=== PATIENT | male | born 1975 | race Two or more races ===

== ENCOUNTER 2019-09-03 10:49 | Inpatient (IN) | payer OTHER ==
--- NOTE | 2019-09-03 10:59 | BHS.RME ---
Substance Use & Tx History - Substance Use History Alcohol Substance amount: 2 SIX PACK Frequency of use: Daily Substance route: Oral Date of Last Use: 09/02/19 Marijuana/Hashish Substance amount: $50 Frequency of use: Daily Substance route: Smoking Date of Last Use: 09/02/19 Cocaine-Crack Substance amount: $300 Frequency of use: Daily Substance route: Smoking Date of Last Use: 08/31/19 Nicotine Substance amount: 1 CIGG Frequency of use: Daily Substance route: Smoking Date of Last Use: 09/03/19 Physical/Psych/Mental Status - Behavior General Behavior: Increased activity (restlessness, agitation) Eye Contact: Normal - Cooperativeness Cooperativeness: Cooperative - Thinking Thought Processes: Tight, Logical, Goal Directed - Physical Health Problems Is patient presently having any pain?: No Does patient presently have any injuries (include location): No Does patient currently have a fever: No Is patient : No CIWA Nausea/Vomitin-No Nausea/No Vomiting Muscle Tremors: 3 Anxiety: 3 Agitation: 3 Paroxysmal Sweats: No Perspiration Orientation: 0-Oriented Tacttile Disturbances: 0-None Auditory Disturbances: 0-None Visual Disturbances: 0-None Headache: 2-Mild CIWA-Ar Total Score: 11
--- NOTE | 2019-09-03 12:19 | HP ---
CIWA Score Nausea/Vomitin-No Nausea/No Vomiting Muscle Tremors: 3 Anxiety: 3 Agitation: 3 Paroxysmal Sweats: No Perspiration Orientation: 0-Oriented Tacttile Disturbances: 0-None Auditory Disturbances: 0-None Visual Disturbances: 0-None Headache: 2-Mild CIWA-Ar Total Score: 11 - Admission Criteria OASAS Guidelines: Admission for Medically Managed Detox: Requires at least one of the followin. CIWA greater than 12 2. Seizures within the past 24 hours 3. Delirium tremens within the past 24 hours 4. Hallucinations within the past 24 hours 5. Acute intervention needed for co occurring medical disorder 6. Acute intervention needed for co occurring psychiatric disorder 7. Severe withdrawal that cannot be handled at a lower level of care (continued vomiting, continued diarrhea, abnormal vital signs) requiring intravenous medication and/or fluids 8. Admitting History and Physical - Admission Chief Complaint: Mr. Valencia is a 43 yo man who presents to [facility] requesting detox admission for alcohol use disorder. History of Present Illness: Mr. Valencia is a 43 yo man who presents to [facility] requesting detox admission for alcohol use disorder. This is his first admission to [facility]. PMH: migraine, asthma, borderline DM, history of minor heart murmur, left fibula fracture August 31, 2019 PSH: left right finger fracture and surgery and then subsequent trauma, residual left ring fingertip hypersensitivity Psych: none SOC: homeless, drop in center "living room" [place] Legal: none Substance Use History Alcohol Substance amount: 2 SIX PACK Frequency of use: Daily Substance route: Oral Date of Last Use: 09/02/19 First use age 17 y. Seizure and blackout Mar 2019 Admits to eye cycle counter Marijuana/Hashish Substance amount: $50 Frequency of use: Daily Substance route: Smoking Date of Last Use: 09/02/19 First use age 13 y Cocaine-Crack Substance amount: $300 Frequency of use: Daily Substance route: Smoking Date of Last Use: 08/31/19 First use age 34 y Nicotine Substance amount: 1 CIGG Frequency of use: Daily Substance route: Smoking Date of Last Use: 09/03/19 first use age 13 y History Source: Patient Limitations to Obtaining History: No Limitations Admission ROS [facility] - [facility] Allergies/Adverse Reactions: Allergies Allergy/AdvReac Type Severity Reaction Status Date / Time No Known Allergies Allergy Verified 09/03/19 12:09 Exam Limitations: No Limitations - Ebola screening Have you traveled outside of the country in the last 21 days: No Have you been sick,other than usual withdrawal symptoms: No Do you have a fever: No - Review of Systems Constitutional: Unintentional Wgt. Loss (lost 12 lbs in the past 6 mos) EENT: reports: Blurred Vision (has glasses with him, far sighted) Respiratory: reports: No Symptoms reported Cardiac: reports: No Symptoms Reported GI: reports: No Symptoms Reported : reports: No Symptoms Reported Musculoskeletal: reports: Other (fractured left fibula, has brace) Integumentary: reports: Other (peeling rash feet since 2007 giles bite, more recently in right ring and pinky finger) Neuro: reports: Other (unable to fully extend left ring finger, tip of finger hypersensitive to touch) Endocrine: reports: Other (borderline DM) Hematology: reports: No Symptoms Reported Patient History - Smoking Cessation Smoking history: Current every day smoker Have you smoked in the past 12 months: Yes Aproximately how many cigarettes per day: 1 Hx Chewing Tobacco Use: No Initiated information on smoking cessation: Yes 'Breaking Loose' booklet given: 09/03/19 Admission Physical Exam BHS - Physical General Appearance: Yes: No Apparent Distress, Nourished HEENTM: Yes: EOMI, Hearing grossly Normal, Normocephalic, Normal Voice Respiratory: Yes: Lungs Clear, Normal Breath Sounds, No Accessory Muscle Use Neck: Yes: Within Normal Limits, Supple Breast: Yes: Breast Exam Deferred Cardiology: Yes: Regular Rhythm, Regular Rate Abdominal: Yes: Normal Bowel Sounds, Non Tender, Flat, Soft Back: Yes: Normal Inspection Musculoskeletal: Yes: Other (left leg swelling, has crutches and left knee/leg brace) Extremities: Yes: Normal Inspection, Non-Tender Neurological: Yes: Alert, Normal Response Integumentary: Yes: Other (dry peeling bilateral toes. Dry right ring and pinky finger near distal interphalageal joint) - Diagnostic (1) Alcohol dependence with withdrawal, uncomplicated Current Visit: Yes Status: Acute (2) Cocaine dependence Current Visit: Yes Status: Acute Qualifiers: Substance use status: uncomplicated Qualified Code(s): F14.20 - Cocaine dependence, uncomplicated (3) Cannabis abuse Current Visit: Yes Status: Acute (4) Migraine with aura Current Visit: No Status: Chronic Qualifiers: Status migrainosus presence: without status migrainosus Intractability: not intractable Qualified Code(s): G43.109 - Migraine with aura, not intractable, without status migrainosus (5) Asthma Current Visit: No Status: Chronic (6) Borderline diabetes Current Visit: Yes Status: Chronic (7) History of cardiac murmur Current Visit: No Status: Chronic (8) Fracture of left fibula Current Visit: Yes Status: Acute Qualifiers: Encounter type: sequela Fibula location: proximal Fracture type: closed Cleared for Admission S - Detox or Rehab [facility] Level of Care: Medically Managed Detox Regimen/Protocol: Librium Breathalyzer - Breathalyzer Breathalyzer: 0 Urine Drug Screen - Test Device Lot number: [id number] Expiration date: 10/27/20 - Control Is test valid?: Yes - Results Drug screen NEGATIVE: No Urine drug screen results: [facility]-Cocaine Inpatient Rehab Admission - Rehab Decision to Admit Inpatient rehab admission?: No
[2019-09-03] MEDS ORDERED: MAGNESIUM CITRATE 300 ML BOTTLE PO PRN (12:33)
[2019-09-03] MEDS ORDERED: ACETAMINOPHEN 325 MG TABLET (FP) PO PRN (12:33)
[2019-09-03] MEDS ORDERED: BISMUTH SUBSALICYLATE 524 MG/30 ML UD PO PRN (12:33)
[2019-09-03] MEDS ORDERED: chlordiazePOXIDE HCL 25 MG CAPSULE PO PRN (12:33)
[2019-09-03] MEDS ORDERED: MAG HYDROX/AL HYDROX/SIMETH 30 ML UNIT-DOSE CUP PO PRN (12:33)
[2019-09-03] MEDS ORDERED: MENTHOL/PHENOL 1 EACH UD MM PRN (12:33)
[2019-09-03] MEDS ORDERED: MAGNESIUM HYDROX 2400MG/30ML ORAL SUSPENSION 30 ML CUP PO PRN (12:33)
[2019-09-03] MEDS ORDERED: ONDANSETRON *ODT* 4 MG TABLET SL PRN (12:33)
[2019-09-03] MEDS ORDERED: TUBERCULIN PPD 5 TU/0.1ML VIAL ID ONE (13:08)
[2019-09-03] MEDS: hydrOXYzine PAMOATE 25 MG CAPSULE (FP) PO SCH ×3 (13:14→22:04)
[2019-09-03] MEDS: IBUPROFEN 400 MG TABLET (FP) PO PRN (13:22)
[2019-09-03 16:12] LABS: BILIRUBIN,TOTAL 0.4 mg/dL (0.2-1); BLOOD UREA NITROGEN 12.4 mg/dL (7-18); CALCIUM 9.1 mg/dL (8.5-10.1); CREATININE 0.9 mg/dL (0.55-1.3); HEMATOCRIT 36.1 % (35.4-49); HEMOGLOBIN 11.5 GM/dL (11.7-16.9); MCH 30.6 pg (25.7-33.7); MCHC 31.9 g/dl (32.0-35.9); MEAN CELL VOLUME 95.8 fl (80-96); MEAN PLT VOLUME 9.9 fl (7.5-11.1); PLATELET COUNT 262 K/MM3 (134-434); RBC 3.77 M/mm3 (4.00-5.60); RDW 13.3 % (11.9-15.9); TOT PROT 7.5 g/dl (6.4-8.2); WHITE BLOOD COUNT 5.8 K/mm3 (4.0-10.0)
[2019-09-03] MEDS: chlordiazePOXIDE HCL 25 MG CAPSULE PO SCH ×2 (18:02→22:04)
[2019-09-03] MEDS: MELATONIN 5 MG TABLETS PO SCH (22:04)
[2019-09-03] MEDS: THIAMINE HCL 100 MG TABLET (FP) PO SCH (22:04)
[2019-09-04] MEDS: METHOCARBAMOL 500 MG TABLET PO PRN ×2 (03:57→19:18)
[2019-09-04] MEDS: ACETAMINOPHEN 325 MG TABLET (FP) PO PRN (03:57)
[2019-09-04] MEDS: chlordiazePOXIDE HCL 25 MG CAPSULE PO SCH ×4 (06:22→22:00)
[2019-09-04] MEDS: hydrOXYzine PAMOATE 25 MG CAPSULE (FP) PO SCH ×5 (06:22→22:00)
--- NOTE | 2019-09-04 10:22 | PN ---
[facility] CIWA - CIWA Score Nausea/Vomitin-No Nausea/No Vomiting Muscle Tremors: 4-Moderate,w/Arms Extend Anxiety: 4-Mod. Anxious/Guarded Agitation: 0-Normal Activity Paroxysmal Sweats: 2 Orientation: 0-Oriented Tacttile Disturbances: 0-None Auditory Disturbances: 0-None Visual Disturbances: 0-None Headache: 0-None Present CIWA-Ar Total Score: 10 BHS Progress Note (SOAP) Subjective: Pt is a 43 y/o male admitted to detox for alcohol withdrawal sx. pt is on Librium regimen. PMH: migraine, asthma, borderline DM, history of minor heart murmur, left fibula fracture on August [id number] went to [facility] for care-left leg brace in place and uses crutches for ambulation). PSH: left right finger fracture and surgery and then subsequent trauma, residual left ring fingertip hypersensitivity Psych: none SOC: homeless, drop in center "living room" [place] Legal: none c/o Tremors anxiety fatigue Objective: 09/04/19 10:25 Vital Signs - 24 hr 09/03/19 09/03/19 09/03/19 12:30 13:07 16:50 Temperature 97.5 F L 98.2 F 98.3 F Pulse Rate 75 75 67 Respiratory 18 16 16 Rate Blood Pressure 125/75 137/88 116/66 O2 Sat by Pulse 97 Oximetry (%) 09/03/19 09/04/19 21:05 05:33 Temperature 98.6 F 98.2 F Pulse Rate 70 64 Respiratory 18 18 Rate Blood Pressure 128/69 123/63 O2 Sat by Pulse 97 96 Oximetry (%) Laboratory Tests 09/03/19 09/03/19 09/03/19 12:30 12:30 12:30 WBC 5.8 RBC 3.77 L Hgb 11.5 L Hct 36.1 MCV 95.8 MCH 30.6 MCHC 31.9 L RDW 13.3 Plt Count 262 MPV 9.9 Sodium 143 Potassium 4.0 Chloride 105 Carbon Dioxide 33 H Anion Gap 5 L BUN 12.4 Creatinine 0.9 Est GFR (CKD-EPI)AfAm 122.52 Est GFR (CKD-EPI)NonAf 105.71 Random Glucose 94 Calcium 9.1 Total Bilirubin 0.4 AST 20 ALT 21 Alkaline Phosphatase 96 Total Protein 7.5 Albumin 4.0 Syphilis Serology Non-reactive covid-19 result pending Assessment: 09/04/19 10:26 withdrawal sx Plan: cont detox increase po fluids maintain safety
[2019-09-04] MEDS: PRENATAL VITAMINS W/ FOLIC ACID TABLET (FP) PO SCH (10:27)
[2019-09-04] MEDS: IBUPROFEN 400 MG TABLET (FP) PO PRN ×2 (10:28→17:23)
[2019-09-04] MEDS: NICOTINE POLACRILEX 2 MG GUM BUC PRN (10:31)
--- NOTE | 2019-09-04 10:45 | EKG ---
Test Reason : Blood Pressure : / mmHG Vent. Rate : 067 BPM Atrial Rate : 067 BPM P-R Int : 158 ms QRS Dur : 094 ms QT Int : 408 ms P-R-T Axes : 072 074 074 degrees QTc Int : 431 ms NORMAL SINUS RHYTHM NONSPECIFIC T WAVE ABNORMALITY ABNORMAL ECG WHEN COMPARED WITH ECG OF 02-JUL-2005 11:13, NONSPECIFIC T WAVE ABNORMALITY NOW EVIDENT IN ANTEROLATERAL LEADS Confirmed by MD Collins, Winston ([id number]) on 09/04/2019 10:45:12 AM Referred By: Brianna OSPINA Confirmed By:Winston Guadalupe MD
[2019-09-04] MEDS: MELATONIN 5 MG TABLETS PO SCH (22:00)
[2019-09-04] MEDS: THIAMINE HCL 100 MG TABLET (FP) PO SCH (22:00)
[2019-09-05] MEDS: hydrOXYzine PAMOATE 25 MG CAPSULE (FP) PO SCH ×5 (07:05→23:12)
[2019-09-05] MEDS: chlordiazePOXIDE HCL 25 MG CAPSULE PO SCH ×4 (07:05→23:12)
[2019-09-05] MEDS: PRENATAL VITAMINS W/ FOLIC ACID TABLET (FP) PO SCH (10:11)
[2019-09-05] MEDS: IBUPROFEN 400 MG TABLET (FP) PO PRN (10:11)
--- NOTE | 2019-09-05 10:48 | PN ---
BHS CIWA - CIWA Score Nausea/Vomitin-No Nausea/No Vomiting Muscle Tremors: 4-Moderate,w/Arms Extend Anxiety: 4-Mod. Anxious/Guarded Agitation: 0-Normal Activity Paroxysmal Sweats: No Perspiration Orientation: 0-Oriented Tacttile Disturbances: 0-None Auditory Disturbances: 0-None Visual Disturbances: 0-None Headache: 0-None Present CIWA-Ar Total Score: 8 BHS Progress Note (SOAP) Subjective: Pt reports "today is better'. c/o slight tremors anxiety body aches intermittent sleep Objective: 09/05/19 10:47 Vital Signs - 24 hr 09/04/19 09/04/19 09/05/19 13:36 16:55 05:28 Temperature 98.3 F 98.2 F 98.2 F Pulse Rate 79 80 80 Respiratory 16 18 18 Rate Blood Pressure 113/54 L 112/49 L 140/71 O2 Sat by Pulse 96 96 Oximetry (%) 09/05/19 09:47 Temperature Pulse Rate 94 H Respiratory 18 Rate Blood Pressure 120/64 O2 Sat by Pulse 94 L Oximetry (%) Laboratory Tests 09/03/19 09/03/19 09/03/19 12:30 12:30 12:30 WBC 5.8 RBC 3.77 L Hgb 11.5 L Hct 36.1 MCV 95.8 MCH 30.6 MCHC 31.9 L RDW 13.3 Plt Count 262 MPV 9.9 Sodium 143 Potassium 4.0 Chloride 105 Carbon Dioxide 33 H Anion Gap 5 L BUN 12.4 Creatinine 0.9 Est GFR (CKD-EPI)AfAm 122.52 Est GFR (CKD-EPI)NonAf 105.71 Random Glucose 94 Calcium 9.1 Total Bilirubin 0.4 AST 20 ALT 21 Alkaline Phosphatase 96 Total Protein 7.5 Albumin 4.0 Syphilis Serology Non-reactive COVID-19 (MAR) 09/03/19 14:00 WBC RBC Hgb Hct MCV MCH MCHC RDW Plt Count MPV Sodium Potassium Chloride Carbon Dioxide Anion Gap BUN Creatinine Est GFR (CKD-EPI)AfAm Est GFR (CKD-EPI)NonAf Random Glucose Calcium Total Bilirubin AST ALT Alkaline Phosphatase Total Protein Albumin Syphilis Serology COVID-19 (MAR) Not detected covid-19 not detected alert o x 3 nad oob with crutchs as needed. Assessment: 09/05/19 10:48 withdrwal sx Plan: cont detox increase po fluids maintain safety
[2019-09-05] MEDS: NICOTINE POLACRILEX 2 MG GUM BUC PRN (15:47)
[2019-09-05] MEDS: MELATONIN 5 MG TABLETS PO SCH (23:12)
[2019-09-05] MEDS: METHOCARBAMOL 500 MG TABLET PO PRN (23:12)
[2019-09-05] MEDS: THIAMINE HCL 100 MG TABLET (FP) PO SCH (23:12)
[2019-09-06] MEDS ORDERED: chlordiazePOXIDE HCL 10 MG CAPSULE PO PRN
[2019-09-06] MEDS: chlordiazePOXIDE HCL 10 MG CAPSULE PO SCH ×4 (06:31→22:03)
[2019-09-06] MEDS: hydrOXYzine PAMOATE 25 MG CAPSULE (FP) PO SCH ×5 (06:31→21:33)
[2019-09-06] MEDS: METHOCARBAMOL 500 MG TABLET PO PRN (06:33)
[2019-09-06] MEDS: PRENATAL VITAMINS W/ FOLIC ACID TABLET (FP) PO SCH (11:01)
--- NOTE | 2019-09-06 12:23 | PN ---
S CIWA - CIWA Score Nausea/Vomitin-No Nausea/No Vomiting Muscle Tremors: 1-None Visible, but [place] Anxiety: 4-Mod. Anxious/Guarded Agitation: 3 Paroxysmal Sweats: 1-Minimal Palms Moist Orientation: 0-Oriented Tacttile Disturbances: 0-None Auditory Disturbances: 0-None Visual Disturbances: 0-None Headache: 0-None Present CIWA-Ar Total Score: 9 BHS Progress Note (SOAP) Subjective: c/o anxiety slight tremors pain on injured left leg(on long leg brace) Objective: 09/06/19 12:26 Vital Signs - 24 hr 09/05/19 09/05/19 09/05/19 13:25 16:38 20:58 Temperature 98.4 F 98.0 F Pulse Rate 90 94 H 91 H Respiratory 16 16 16 Rate Blood Pressure 126/59 L 123/75 133/73 O2 Sat by Pulse 94 L 98 Oximetry (%) 09/06/19 09/06/19 06:41 10:16 Temperature 98.6 F 98.2 F Pulse Rate 83 94 H Respiratory 18 16 Rate Blood Pressure 132/69 131/64 O2 Sat by Pulse 98 96 Oximetry (%) Laboratory Tests 09/03/19 09/03/19 09/03/19 12:30 12:30 12:30 WBC 5.8 RBC 3.77 L Hgb 11.5 L Hct 36.1 MCV 95.8 MCH 30.6 MCHC 31.9 L RDW 13.3 Plt Count 262 MPV 9.9 Sodium 143 Potassium 4.0 Chloride 105 Carbon Dioxide 33 H Anion Gap 5 L BUN 12.4 Creatinine 0.9 Est GFR (CKD-EPI)AfAm 122.52 Est GFR (CKD-EPI)NonAf 105.71 Random Glucose 94 Calcium 9.1 Total Bilirubin 0.4 AST 20 ALT 21 Alkaline Phosphatase 96 Total Protein 7.5 Albumin 4.0 Syphilis Serology Non-reactive COVID-19 (MAR) 09/03/19 14:00 WBC RBC Hgb Hct MCV MCH MCHC RDW Plt Count MPV Sodium Potassium Chloride Carbon Dioxide Anion Gap BUN Creatinine Est GFR (CKD-EPI)AfAm Est GFR (CKD-EPI)NonAf Random Glucose Calcium Total Bilirubin AST ALT Alkaline Phosphatase Total Protein Albumin Syphilis Serology COVID-19 (MAR) Not detected alert o x 3 nad oob ambulating with crutches left leg in brace- no swelling or open skin noted when examined patient today with nurse Terri. pt reports he has to follow up care with [facility] but did not give date. 09/06/19 12:34 09/06/19 12:34 Assessment: 09/06/19 12:31 withdrawal sx Plan: cont detox increase po fluids maintain safety Routine UA ordered
[2019-09-06] MEDS: BACITRACIN 0.9 GM PACKET TP SCH (14:48)
[2019-09-06] MEDS: NAPROXEN 500 MG TABLET PO PRN ×2 (15:56→21:33)
[2019-09-06] MEDS: TOLNAFTATE 1% CREAM 15 GM TUBE TP SCH (21:32)
[2019-09-06] MEDS: MELATONIN 5 MG TABLETS PO SCH (21:33)
[2019-09-06] MEDS: THIAMINE HCL 100 MG TABLET (FP) PO SCH (21:33)
[2019-09-07] MEDS: chlordiazePOXIDE HCL 10 MG CAPSULE PO SCH ×2 (06:58→17:11)
[2019-09-07] MEDS: hydrOXYzine PAMOATE 25 MG CAPSULE (FP) PO SCH ×5 (06:59→22:32)
[2019-09-07 09:05] LABS: EPI CELLS 24 /uL (0-25.1); HYALINE CASTS 96 /uL (0-3.1); PH,URINE 6.5 (5.0-8.0); URINE APPEARANCE CLOUDY; URINE BACTERIA 1170 /uL (0-1359); URINE BILIRUBIN NEGATIVE (NEGATIVE); URINE COLOR YELLOW; URINE GLUCOSE (UA) NEGATIVE (NEGATIVE); URINE KETONE TRACE (NEGATIVE); URINE LEUK ESTERASE 2+ (NEGATIVE); URINE NITRITE NEGATIVE (NEGATIVE); URINE PROTEIN NEGATIVE (NEGATIVE); URINE RBC 11 /uL (0-23.9); URINE UROBILINOGEN 0.2 mg/dL (0.2-1.0); URINE WBC 530 /uL (0-25.8)
[2019-09-07 09:36] LABS: URINE CRYSTALS PRESENT /hpf
[2019-09-07] MEDS: BACITRACIN 0.9 GM PACKET TP SCH (10:38)
[2019-09-07] MEDS: NAPROXEN 500 MG TABLET PO PRN ×2 (10:38→22:32)
[2019-09-07] MEDS: TOLNAFTATE 1% CREAM 15 GM TUBE TP SCH ×2 (10:38→22:31)
[2019-09-07] MEDS: PRENATAL VITAMINS W/ FOLIC ACID TABLET (FP) PO SCH (10:38)
--- NOTE | 2019-09-07 11:15 | PN ---
[facility] CIWA - CIWA Score Nausea/Vomitin-No Nausea/No Vomiting Muscle Tremors: None Anxiety: 3 Agitation: 2 Paroxysmal Sweats: No Perspiration Orientation: 0-Oriented Tacttile Disturbances: 0-None Auditory Disturbances: 0-None Visual Disturbances: 0-None Headache: 0-None Present CIWA-Ar Total Score: 5 BHS Progress Note (SOAP) Subjective: Complaints of mild anxiety and agitation. Objective: 09/07/19 11:11 Vital Signs 09/07/19 06:40 Temperature 97.6 F Pulse Rate 70 Respiratory 18 Rate Blood Pressure 111/69 O2 Sat by Pulse 95 Oximetry (%) Laboratory Last Values WBC 5.8 K/mm3 (4.0-10.0) 09/03/19 12:30 RBC 3.77 M/mm3 (4.00-5.60) L 09/03/19 12:30 Hgb 11.5 GM/dL (11.7-16.9) L 09/03/19 12:30 Hct 36.1 % (35.4-49) 09/03/19 12:30 MCV 95.8 fl (80-96) 09/03/19 12:30 MCH 30.6 pg (25.7-33.7) 09/03/19 12:30 MCHC 31.9 g/dl (32.0-35.9) L 09/03/19 12:30 RDW 13.3 % (11.9-15.9) 09/03/19 12:30 Plt Count 262 K/MM3 (134-434) 09/03/19 12:30 MPV 9.9 fl (7.5-11.1) 09/03/19 12:30 Sodium 143 mmol/L (136-145) 09/03/19 12:30 Potassium 4.0 mmol/L (3.5-5.1) 09/03/19 12:30 Chloride 105 mmol/L (98-107) 09/03/19 12:30 Carbon Dioxide 33 mmol/L (21-32) H 09/03/19 12:30 Anion Gap 5 MMOL/L (8-16) L 09/03/19 12:30 BUN 12.4 mg/dL (7-18) 09/03/19 12:30 Creatinine 0.9 mg/dL (0.55-1.3) 09/03/19 12:30 Est GFR (CKD-EPI)AfAm 122.52 09/03/19 12:30 Est GFR (CKD-EPI)NonAf 105.71 09/03/19 12:30 Random Glucose 94 mg/dL (74-106) 09/03/19 12:30 Calcium 9.1 mg/dL (8.5-10.1) 09/03/19 12:30 Total Bilirubin 0.4 mg/dL (0.2-1) 09/03/19 12:30 AST 20 U/L (15-37) 09/03/19 12:30 ALT 21 U/L (13-61) 09/03/19 12:30 Alkaline Phosphatase 96 U/L (45-117) 09/03/19 12:30 Total Protein 7.5 g/dl (6.4-8.2) 09/03/19 12:30 Albumin 4.0 g/dl (3.4-5.0) 09/03/19 12:30 Urine Color Yellow 09/06/19 22:00 Urine Appearance Cloudy 09/06/19 22:00 Urine pH 6.5 (5.0-8.0) 09/06/19 22:00 Ur Specific [place] 1.032 (1.010-1.035) 09/06/19 22:00 Urine Protein Negative (NEGATIVE) 09/06/19 22:00 Urine Glucose (UA) Negative (NEGATIVE) 09/06/19 22:00 Urine Ketones Trace (NEGATIVE) H 09/06/19 22:00 Urine Blood Negative (NEGATIVE) 09/06/19 22:00 Urine Nitrite Negative (NEGATIVE) 09/06/19 22:00 Urine Bilirubin Negative (NEGATIVE) 09/06/19 22:00 Urine Urobilinogen 0.2 mg/dL (0.2-1.0) 09/06/19 22:00 Ur Leukocyte Esterase 2+ (NEGATIVE) H 09/06/19 22:00 Urine WBC (Auto) 530 /uL (0-25.8) 09/06/19 22:00 Urine RBC (Auto) 11 /uL (0-23.9) 09/06/19 22:00 Urine Casts (Auto) 96 /uL (0-3.1) 09/06/19 22:00 U Epithel Cells (Auto) 24 /uL (0-25.1) 09/06/19 22:00 Urine Crystals (Auto) Present /hpf 09/06/19 22:00 Urine Bacteria (Auto) 1170 /uL (0-1359) 09/06/19 22:00 Syphilis Serology Non-reactive (NONREACTIVE) 09/03/19 12:30 COVID-19 (MAR) Not detected (Not Detected) 09/03/19 14:00 Labs noted. Assessment: 09/07/19 11:12 Alert and oriented x3, in no acute respiratory distress. Full ROM, ambulating in the unit with left knee brace. Mild withdrawal symptoms. For discharge on Monday to [facility] as per Counselor's notes. Plan: Continue detox protocol. D/C Monday as per Counselor's notes.
[2019-09-07] MEDS: MELATONIN 5 MG TABLETS PO SCH (22:31)
[2019-09-07] MEDS: THIAMINE HCL 100 MG TABLET (FP) PO SCH (22:32)
[2019-09-07] MEDS: METHOCARBAMOL 500 MG TABLET PO PRN (22:33)
[2019-09-08] MEDS ORDERED: chlordiazePOXIDE HCL 10 MG CAPSULE PO ONE (05:00)
[2019-09-08] MEDS: hydrOXYzine PAMOATE 25 MG CAPSULE (FP) PO SCH ×2 (06:18→10:20)
[2019-09-08] MEDS: NAPROXEN 500 MG TABLET PO PRN (06:19)
[2019-09-08 09:36] VITALS: BP 107/65; PULSE 81; TEMP 98.4
[2019-09-08] MEDS: TOLNAFTATE 1% CREAM 15 GM TUBE TP SCH (10:20)
[2019-09-08] MEDS: PRENATAL VITAMINS W/ FOLIC ACID TABLET (FP) PO SCH (10:20)
[2019-09-08] MEDS: BACITRACIN 0.9 GM PACKET TP SCH (10:20)
[2019-09-08] MEDS: ACETAMINOPHEN 325 MG TABLET (FP) PO PRN (10:21)
[2019-09-08] MEDS: METHOCARBAMOL 500 MG TABLET PO PRN (10:21)
--- NOTE | 2019-09-08 13:26 | DS ---
[facility] Detox Discharge Summary Admission Date: 09/03/19 Discharge Date: 09/08/19 - History Present History: Alcohol Dependence Additional Comments: 43 years old male admitted on 09/03/19 for alcohol withdrawal sx management treated with librium detox regiment mr noyola prefers to leave the detox unit today that "girl friend" is home mr noyola has completed the librium regiment and is tolerated well ambulating with crutches and lest leg connelly ambulating on hallway without crutches slow steady alert oriented x 2 speech clearly coherently cardiac s1s2 regular rate rhythm Vital Signs - 24 hr 09/07/19 09/07/19 09/08/19 17:08 20:40 06:00 Temperature 97.8 F 97.8 F Pulse Rate 83 84 Respiratory 18 18 Rate Blood Pressure 110/69 133/75 O2 Sat by Pulse 96 96 96 Oximetry (%) 09/08/19 09/08/19 06:54 09:27 Temperature 97.3 F L 98.4 F Pulse Rate 78 81 Respiratory 18 18 Rate Blood Pressure 129/83 107/65 O2 Sat by Pulse Oximetry (%) respiratory clear lung sounds bilaterally on auscultation skin wARM AND DRY Pertinent Past History: TIME FOR DISCHARGE 40 MINUTES MR NOYOLA WILL RETURN TO [facility] IN A FEW DAY FOR LEFT LEG FIBULAR FX ON 08/31/19 TREATED WITH LEG CONNELLY - Physical Exam Results Vital Signs: Vital Signs Temperature 98.4 F 09/08/19 09:27 Pulse Rate 81 09/08/19 09:27 Respiratory Rate 18 09/08/19 09:27 Blood Pressure 107/65 09/08/19 09:27 O2 Sat by Pulse Oximetry (%) 96 09/08/19 06:00 Pertinent Admission Physical Exam Findings: ALCOHOL WITHDRAWAL Laboratory Tests 09/03/19 09/03/19 09/03/19 12:30 12:30 12:30 WBC 5.8 RBC 3.77 L Hgb 11.5 L Hct 36.1 MCV 95.8 MCH 30.6 MCHC 31.9 L RDW 13.3 Plt Count 262 MPV 9.9 Sodium 143 Potassium 4.0 Chloride 105 Carbon Dioxide 33 H Anion Gap 5 L BUN 12.4 Creatinine 0.9 Est GFR (CKD-EPI)AfAm 122.52 Est GFR (CKD-EPI)NonAf 105.71 Random Glucose 94 Calcium 9.1 Total Bilirubin 0.4 AST 20 ALT 21 Alkaline Phosphatase 96 Total Protein 7.5 Albumin 4.0 Urine Color Urine Appearance Urine pH Ur Specific [place] Urine Protein Urine Glucose (UA) Urine Ketones Urine Blood Urine Nitrite Urine Bilirubin Urine Urobilinogen Ur Leukocyte Esterase Urine WBC (Auto) Urine RBC (Auto) Urine Casts (Auto) U Epithel Cells (Auto) Urine Crystals (Auto) Urine Bacteria (Auto) Syphilis Serology Non-reactive COVID-19 (MAR) 09/03/19 09/06/19 14:00 22:00 WBC RBC Hgb Hct MCV MCH MCHC RDW Plt Count MPV Sodium Potassium Chloride Carbon Dioxide Anion Gap BUN Creatinine Est GFR (CKD-EPI)AfAm Est GFR (CKD-EPI)NonAf Random Glucose Calcium Total Bilirubin AST ALT Alkaline Phosphatase Total Protein Albumin Urine Color Yellow Urine Appearance Cloudy Urine pH 6.5 Ur Specific [place] 1.032 Urine Protein Negative Urine Glucose (UA) Negative Urine Ketones Trace H Urine Blood Negative Urine Nitrite Negative Urine Bilirubin Negative Urine Urobilinogen 0.2 Ur Leukocyte Esterase 2+ H Urine WBC (Auto) 530 Urine RBC (Auto) 11 Urine Casts (Auto) 96 U Epithel Cells (Auto) 24 Urine Crystals (Auto) Present Urine Bacteria (Auto) 1170 Syphilis Serology COVID-19 (MAR) Not detected LAB NOTED UTI BACTRIM DS BID - Treatment Hospital Course: Detox Protocol Followed, Detoxed Safely, Responded well, Discharged Condition Good, Rehab Referral Accepted Patient has Accepted a Rehab Referral to: [facility] - Medication Discharge Medications: Ambulatory Orders Acetaminophen [Tylenol .Extra-Strength -] 500 mg PO Q4H PRN 09/03/19 Albuterol Sulfate Inhaler - [Ventolin HFA Inhaler -] 2 inh PO Q4H PRN 09/03/19 Sulfamethoxazole/Trimethoprim [Bactrim DS -] 1 each PO BID 5 Days #10 tablet 09/08/19 - Diagnosis (1) Alcohol dependence with withdrawal, uncomplicated Status: Acute (2) Fracture of left fibula Status: Acute Qualifiers: Encounter type: sequela Fibula location: proximal Fracture type: closed (3) Asthma Status: Chronic Qualifiers: Asthma severity: mild Asthma persistence: intermittent Asthma complication type: with status asthmaticus Qualified Code(s): J45.22 - Mild intermittent asthma with status asthmaticus - AMA Did Patient Leave Against Medical Advice: No CIWA Score - CIWA Score Nausea/Vomitin-No Nausea/No Vomiting Muscle Tremors: None Anxiety: 1-Mildly Anxious Agitation: 1-Slight > Activity Paroxysmal Sweats: No Perspiration Orientation: 0-Oriented Tacttile Disturbances: 0-None Auditory Disturbances: 0-None Visual Disturbances: 0-None Headache: 0-None Present CIWA-Ar Total Score: 2
[2019-09-08] MEDS ORDERED: SULFAMETHOXAZOLE/TRIMETHOPRIM 800MG/160MG D.S. TABLET PO SCH (22:00)
== END 2019-09-08 12:16 | disposition home or self-care (01) | DRG 774 ==
LOC: YASAS 10:49 → Y5N DETOX 12:25
PROVIDERS: ADMIT Allergy & Immunology; ATTEND Allergy & Immunology
PROC: HZ2ZZZZ Detoxification Services for Substance Abuse Treatment (ICD-10-PCS; principal; 2019-09-03)
DX: F10.230 Alcohol dependence with withdrawal, uncomplicated (principal); F14.20 Cocaine dependence, uncomplicated; F12.20 Cannabis dependence, uncomplicated; F17.210 Nicotine dependence, cigarettes, uncomplicated; N39.0 Urinary tract infection, site not specified; R73.03 Prediabetes; J45.909 Unspecified asthma, uncomplicated; G43.109 Migraine with aura, not intractable, without status migrainosus; S82.402D Unspecified fracture of shaft of left fibula, subsequent encounter for closed fracture with routine healing; X58.XXXD Exposure to other specified factors, subsequent encounter; Z99.89 Dependence on other enabling machines and devices; Z86.79 Personal history of other diseases of the circulatory system; Z59.0 Homelessness
CPT/HCPCS: 36415; 80053; 81003; 85027; 86780; 93005; 93010; U0003

== ENCOUNTER 2020-03-27 15:15 | Inpatient (IN) | payer OTHER ==
[2020-03-27 18:51] VITALS: BMI 20.3
[2020-03-27] MEDS ORDERED: MAG HYDROX/AL HYDROX/SIMETH 30 ML UNIT-DOSE CUP PO PRN (19:22)
[2020-03-27] MEDS ORDERED: METHOCARBAMOL 500 MG TABLET PO PRN (19:22)
[2020-03-27] MEDS ORDERED: chlordiazePOXIDE HCL 25 MG CAPSULE PO PRN (19:22)
[2020-03-27] MEDS ORDERED: MAGNESIUM CITRATE 300 ML BOTTLE PO PRN (19:22)
[2020-03-27] MEDS ORDERED: MENTHOL/PHENOL 1 EACH UD MM PRN (19:22)
[2020-03-27] MEDS ORDERED: ACETAMINOPHEN 325 MG TABLET (FP) PO PRN (19:22)
[2020-03-27] MEDS ORDERED: BISMUTH SUBSALICYLATE 524 MG/30 ML UD PO PRN (19:22)
[2020-03-27] MEDS ORDERED: NICOTINE POLACRILEX 2 MG GUM BUC PRN (19:22)
[2020-03-27] MEDS ORDERED: MAGNESIUM HYDROX 2400MG/30ML ORAL SUSPENSION 30 ML CUP PO PRN (19:22)
[2020-03-27] MEDS ORDERED: ONDANSETRON *ODT* 4 MG TABLET SL PRN (19:22)
[2020-03-27] MEDS ORDERED: ALBUTEROL SO4 HFA INHALER IH PRN (19:24)
[2020-03-27] MEDS ORDERED: chlordiazePOXIDE HCL 25 MG CAPSULE ONE ×2 (20:54→22:17)
[2020-03-27] MEDS: chlordiazePOXIDE HCL 25 MG CAPSULE PO SCH (22:22)
[2020-03-27] MEDS: THIAMINE HCL 100 MG TABLET (FP) PO SCH (22:22)
[2020-03-27] MEDS: MELATONIN 5 MG TABLETS PO SCH (22:22)
[2020-03-28] MEDS ORDERED: chlordiazePOXIDE HCL 25 MG CAPSULE ONE (06:02)
[2020-03-28] MEDS ORDERED: IBUPROFEN 400 MG TABLET (FP) PO ONE (06:02)
[2020-03-28] MEDS ORDERED: METHOCARBAMOL 500 MG TABLET ONE (06:02)
[2020-03-28] MEDS: IBUPROFEN 400 MG TABLET (FP) PO PRN ×2 (06:04→17:33)
[2020-03-28] MEDS: chlordiazePOXIDE HCL 25 MG CAPSULE PO SCH ×4 (06:05→22:20)
[2020-03-28] MEDS: PRENATAL VITAMINS W/ FOLIC ACID TABLET (FP) PO SCH (10:07)
[2020-03-28] MEDS: hydrOXYzine PAMOATE 25 MG CAPSULE (FP) PO PRN (10:07)
[2020-03-28] MEDS: NICOTINE 14 MG/24 HOURS TOPICAL PATCH TD SCH (10:34)
[2020-03-28 11:58] LABS: POTASSIUM 4.1 mmol/L (3.5-5.1)
[2020-03-28 12:02] LABS: ALBUMIN 3.5 g/dl (3.4-5.0); BLOOD UREA NITROGEN 13.7 mg/dL (7-18); CALCIUM 8.9 mg/dL (8.5-10.1)
[2020-03-28 12:04] LABS: HEMATOCRIT 34.2 % (35.4-49); HEMOGLOBIN 11.7 GM/dL (11.7-16.9); MCH 31.7 pg (25.7-33.7); MCHC 34.3 g/dl (32.0-35.9); MEAN CELL VOLUME 92.6 fl (80-96); MEAN PLT VOLUME 9.8 fl (7.5-11.1); PLATELET COUNT 306 K/MM3 (134-434); RBC 3.69 M/mm3 (4.00-5.60); RDW 12.4 % (11.9-15.9)
[2020-03-28 12:05] LABS: CREATININE 0.9 mg/dL (0.55-1.3)
[2020-03-28 12:07] LABS: BILIRUBIN,TOTAL 1.4 mg/dL (0.2-1); TOT PROT 6.8 g/dl (6.4-8.2)
[2020-03-28] MEDS: MELATONIN 5 MG TABLETS PO SCH (22:20)
[2020-03-28] MEDS: THIAMINE HCL 100 MG TABLET (FP) PO SCH (22:20)
[2020-03-29] MEDS: chlordiazePOXIDE HCL 25 MG CAPSULE PO SCH ×5 (07:24→22:51)
[2020-03-29] MEDS: IBUPROFEN 400 MG TABLET (FP) PO PRN (07:26)
[2020-03-29] MEDS: hydrOXYzine PAMOATE 25 MG CAPSULE (FP) PO PRN (07:35)
[2020-03-29] MEDS: PRENATAL VITAMINS W/ FOLIC ACID TABLET (FP) PO SCH (10:12)
[2020-03-29] MEDS: ACETAMINOPHEN 325 MG TABLET (FP) PO PRN (10:15)
[2020-03-29] MEDS: NICOTINE 14 MG/24 HOURS TOPICAL PATCH TD SCH (10:16)
[2020-03-29] MEDS: THIAMINE HCL 100 MG TABLET (FP) PO SCH (22:53)
[2020-03-29] MEDS: MELATONIN 5 MG TABLETS PO SCH (22:53)
[2020-03-30] MEDS ORDERED: chlordiazePOXIDE HCL 10 MG CAPSULE PO PRN
[2020-03-30] MEDS: chlordiazePOXIDE HCL 10 MG CAPSULE PO SCH ×4 (05:19→22:02)
[2020-03-30] MEDS: IBUPROFEN 400 MG TABLET (FP) PO PRN ×2 (05:22→21:04)
[2020-03-30] MEDS: hydrOXYzine PAMOATE 25 MG CAPSULE (FP) PO PRN ×3 (05:52→22:04)
[2020-03-30 10:42] LABS: BILIRUBIN,DIRECT 0.1 mg/dL (0.0-0.2)
[2020-03-30] MEDS: PRENATAL VITAMINS W/ FOLIC ACID TABLET (FP) PO SCH (10:46)
[2020-03-30] MEDS: ACETAMINOPHEN 325 MG TABLET (FP) PO PRN (10:47)
[2020-03-30] MEDS: NICOTINE 14 MG/24 HOURS TOPICAL PATCH TD SCH (10:49)
[2020-03-30] MEDS: METHYL SALICYLATE/MENTHOL OINT 30 GM TUBE TP SCH ×2 (14:44→22:01)
[2020-03-30] MEDS: FLUOCINONIDE 0.05% TOP OINT (60 GM TUBE) TP SCH ×3 (14:45→22:02)
[2020-03-30] MEDS: MELATONIN 5 MG TABLETS PO SCH (22:02)
[2020-03-30] MEDS: THIAMINE HCL 100 MG TABLET (FP) PO SCH (22:02)
[2020-03-31] MEDS: chlordiazePOXIDE HCL 10 MG CAPSULE PO SCH ×2 (05:07→17:19)
[2020-03-31] MEDS: IBUPROFEN 400 MG TABLET (FP) PO PRN (05:11)
[2020-03-31] MEDS: hydrOXYzine PAMOATE 25 MG CAPSULE (FP) PO PRN ×2 (05:11→17:19)
[2020-03-31] MEDS: FLUOCINONIDE 0.05% TOP OINT (60 GM TUBE) TP SCH ×4 (10:05→22:20)
[2020-03-31] MEDS: PRENATAL VITAMINS W/ FOLIC ACID TABLET (FP) PO SCH (10:05)
[2020-03-31] MEDS: METHYL SALICYLATE/MENTHOL OINT 30 GM TUBE TP SCH ×2 (10:06→22:20)
[2020-03-31] MEDS: NICOTINE 14 MG/24 HOURS TOPICAL PATCH TD SCH (10:06)
[2020-03-31] MEDS: ACETAMINOPHEN 325 MG TABLET (FP) PO PRN (10:06)
[2020-03-31] MEDS: THIAMINE HCL 100 MG TABLET (FP) PO SCH (22:21)
[2020-03-31] MEDS: MELATONIN 5 MG TABLETS PO SCH (22:21)
[2020-04-01] MEDS ORDERED: chlordiazePOXIDE HCL 10 MG CAPSULE PO ONE (05:00)
[2020-04-01] MEDS: IBUPROFEN 400 MG TABLET (FP) PO PRN (05:22)
[2020-04-01] MEDS: hydrOXYzine PAMOATE 25 MG CAPSULE (FP) PO PRN (05:25)
[2020-04-01 09:05] VITALS: BP 137/80; PULSE 83; TEMP 97.3
== END 2020-04-01 10:14 | disposition home or self-care (01) | DRG 774 ==
LOC: YASAS 15:15 → Y3N 03-28 08:42
PROVIDERS: ADMIT Allergy & Immunology; ATTEND Allergy & Immunology
PROC: HZ2ZZZZ Detoxification Services for Substance Abuse Treatment (ICD-10-PCS; principal; 2020-03-28)
DX: F10.230 Alcohol dependence with withdrawal, uncomplicated (principal); F14.20 Cocaine dependence, uncomplicated; F12.20 Cannabis dependence, uncomplicated; F17.210 Nicotine dependence, cigarettes, uncomplicated; D50.9 Iron deficiency anemia, unspecified; G43.109 Migraine with aura, not intractable, without status migrainosus; J45.909 Unspecified asthma, uncomplicated; J40 Bronchitis, not specified as acute or chronic; L30.9 Dermatitis, unspecified; R73.03 Prediabetes; R00.1 Bradycardia, unspecified; R56.9 Unspecified convulsions; Z91.018 Allergy to other foods
CPT/HCPCS: 36415; 80053; 82248; 82962; 85027; 86780; 93005; 93010; C9803; U0003